=== PATIENT | female | born 1950 | race Native Hawaiian/Other Pacific Islander ===

== ENCOUNTER 2022-08-19 10:43 | Emergency (ER) | payer OTHER, MEDICARE ==
[~2022-08-19] VITALS: Ht 167.6 cm; Wt 63.5 kg
[2022-08-19 10:50] VITALS: BP 143/86; TEMP 97
== END 2022-08-19 12:25 | disposition home or self-care (01) ==
LOC: ED 10:43
DX: S42.92XA Fracture of left shoulder girdle, part unspecified, initial encounter for closed fracture (principal); W01.0XXA Fall on same level from slipping, tripping and stumbling without subsequent striking against object, initial encounter
CPT/HCPCS: 99283